=== PATIENT | male | born 1970 | race Caucasian/White ===

== ENCOUNTER 2018-07-12 14:37 | Emergency (ER) | payer SELFPAY ==
[~2018-07-12] VITALS: Ht 177.8 cm; Wt 84.1 kg
[2018-07-12 14:40] VITALS: BP 140/81
[2018-07-12] MEDS ORDERED: AMOXICILLIN 8751 TAB PO (15:45)
[2018-07-12] MEDS ORDERED: MOTRIN 800800 MG/TAB PO (15:46)
[2018-07-12 15:55] VITALS: PULSE 70
== END 2018-07-12 15:55 | disposition home or self-care (01) ==
LOC: COL.ER 14:37
DX: K02.9 Dental caries, unspecified (principal); K04.7 Periapical abscess without sinus; Z87.891 Personal history of nicotine dependence

== ENCOUNTER 2021-12-04 15:32 | Observation (INO) | payer MEDICAID ==
[~2021-12-04] VITALS: Ht 177.8 cm; Wt 94.2 kg
[~2021-12-04 15:32] MED LIST: AMOXICILLIN 8751 TAB PO; ASPIRIN E.C. 8181 MG PO; BRILINTA90 MG PO; CYMBALTA 30MG30 MG PO; FLEXERIL 1010 MG/TAB PO; LIPITOR 80MG80 MG PO; MOTRIN 800800 MG/TAB PO; NAPROSYN500 MG PO; NEURONTIN100 MG/CAP PO; NORCO 325 MG-51 TAB PO
[2021-12-04 15:59] LABS: BASO # 0.1 K/mm3 (0.0-0.2); BASO % 0.7 % (0.0-2.0); EOS # 0.2 K/mm3 (0.0-0.7); GRAN # 4.3 K/mm3 (1.4-6.5); GRAN % 52.6 % (42.2-75.2); HEMOGLOBIN 17.6 g/dl (13.5-18.0); LYMPH # 2.7 K/mm3 (1.2-3.4); LYMPH % 33.4 % (20.0-51.0); MEAN CELL VOLUME 91 fl (80.0-100.0); MEAN CORPUSCULAR HEMOGLOBIN 31 pg (27-31); MEAN CORPUSCULAR HGB CONC 34 g/dl (33.0-37.0); MEAN PLATELET VOLUME 9.4 fl (7.4-10.4); MONO # 0.8 K/mm3 (0.1-0.6); MONO % 9.4 % (1.7-9.3); PLATELET COUNT 259 K/mm3 (130-400); RED BLOOD COUNT 5.77 M/mm3 (4.20-5.60); REDCELL DISTRIBUTION WIDTH-CV 13.5 % (11.5-14.5)
[2021-12-04 16:13] LABS: INR 0.9 (0.8-3.0); PROTHROMBIN TIME 10.2 SECONDS (9.7-12.8)
[2021-12-04 16:15] LABS: HEMATOCRIT 52.3 % (42.0-52.0)
[2021-12-04 16:16] LABS: PARTIAL THROMBOPLASTIN TIME 29.6 SECONDS (26.0-37.0)
[2021-12-04] MEDS ORDERED: NITRO-TIME9 MG PO (16:17)
[2021-12-04 16:55] LABS: ALANINE AMINOTRANSFERASE 29 U/L (0-55); ALBUMIN 4.1 gm/dL (3.5-5.0); ALKALINE PHOSPHATASE 92 U/L (40-150); ANION GAP 12 mmol/L (7-16); AST,SGOT 22 U/L (5-34); BILIRUBIN,TOTAL 0.4 mg/dL (0.2-1.2); BLOOD UREA NITROGEN 11 mg/dL (8-26); CALCIUM 9.7 mg/dL (8.4-10.2); CARBON DIOXIDE 22 mmol/L (22-29); CHLORIDE 107 mmol/L (98-107); GLUCOSE 90 mg/dL (70-99); POTASSIUM 4.4 mmol/L (3.5-4.5); SODIUM 141 mmol/L (136-145); TOTAL PROTEIN 7.7 gm/dL (6.2-8.1)
[2021-12-04 17:19] LABS: TROPONIN-I < 0.010 ng/mL (0.00-0.033)
[2021-12-04 19:56] VITALS: BP 141/72; PULSE 62; TEMP 98.3
[2021-12-04 20:25] VITALS: BP 141/72; PULSE 62; TEMP 98.3
[2021-12-05] VITALS (12 sets, daily range): BP systolic 115–152; BP diastolic 61–75; PULSE 57–67; TEMP 98–98.5
--- NOTE | 2021-12-05 01:21 | NUR ---
ADMIT FOR CHEST PAIN- DENIES ANY SOA, CHEST PAIN OR DIZZY UPON ADMIT TO FLOOR. HX AND ASSESSEMTN OBTAINED. MED REC. POC DISCUSSED. NPO AT 12 FOR ECO AND ?INTERVENTION W CARDIOLOGY. CALL LIGHT WI REACH. PM MEDS GIVEN.
--- NOTE | 2021-12-05 11:20 | NUR ---
Bernice: No church preference Situation: Shipping Associate stopped by room on rounds Background: [facility] is [facility] Assessment: PT seems content and appreciated the visit Recommendation: Shipping Associate will follow up as needed
--- NOTE | 2021-12-05 12:47 | NUR ---
Elevator Mechanic Apprentice met with patient to discuss discharge planning. Patient lives in [place] and sees Dr. Cerna for primary care. Patient obtains medications from [facility] in and does not use any DME. Patient is independent with ADLS and plans to return home at time of discharge. Patient thinks he may have completed DPOA-HC but is not sure. Patient is not and has two children: James (ph#[phone]) and Ava. Discharge Plan: Home
--- NOTE | 2021-12-05 12:59 | NUR ---
See merge for all medication, assessment, intervention, and vital sign times.
[2021-12-05] MEDS ORDERED: NITRO-TIME9 MG PO (14:30)
[2021-12-05] MEDS ORDERED: BRILINTA90 MG PO (14:30)
[2021-12-05] MEDS ORDERED: ASPIRIN E.C. 8181 MG PO (14:30)
[2021-12-05] MEDS ORDERED: LIPITOR 80MG80 MG PO (14:30)
--- NOTE | 2021-12-05 16:58 | NUR ---
THIS RN HAS BEEN LETTING AIR OUT OF THE PATIENT'S TR BAND, HOWEVER, THE SITE IS LEAKING SLIGHTLY. RIGHT NOW THERE IS STILL 5CC OF AIR IN THE BAND.
== END 2021-12-05 18:30 | disposition home or self-care (01) ==
LOC: COL.ER 15:32 → MEDICAL 17:59
PROVIDERS: Emergency Medicine; ADMIT Student in an Organized Health Care Education/Training Program
DX: R07.9 Chest pain, unspecified (principal); I25.10 Atherosclerotic heart disease of native coronary artery without angina pectoris; I25.2 Old myocardial infarction; I10 Essential (primary) hypertension; E78.5 Hyperlipidemia, unspecified; M79.2 Neuralgia and neuritis, unspecified; F17.210 Nicotine dependence, cigarettes, uncomplicated; G89.29 Other chronic pain; M54.9 Dorsalgia, unspecified; Z66 Do not resuscitate; T45.526A Underdosing of antithrombotic drugs, initial encounter; T39.016A Underdosing of aspirin, initial encounter; T46.6X6A Underdosing of antihyperlipidemic and antiarteriosclerotic drugs, initial encounter; Z91.128 Patient's intentional underdosing of medication regimen for other reason; Y92.9 Unspecified place or not applicable; Z95.5 Presence of coronary angioplasty implant and graft; Z28.310 Unvaccinated for COVID-19; Z28.9 Immunization not carried out for unspecified reason
CPT/HCPCS: 99233-AI; G0378; J1200; J1644; J1650; J2250; J2930; J3010